=== PATIENT | female | born 1950 | race Caucasian/White ===

== ENCOUNTER 2019-12-14 17:33 | Emergency (ER) | payer MEDICARE, BC ==
[~2019-12-14] VITALS: Ht 154.9 cm; Wt 58.1 kg
[2019-12-14] MEDS ORDERED: LOPRESSOR50 MG PO (17:52)
[2019-12-14] MEDS ORDERED: LIPITOR10 MG PO (17:52)
[2019-12-14] MEDS ORDERED: OMEPRAZOLE20 M2 PO (17:52)
[2019-12-14] MEDS ORDERED: VESICARE10 M1 PO (17:53)
[2019-12-14] MEDS ORDERED: ZESTRIL10 MG PO (17:53)
[2019-12-14 20:26] LABS: INFLUENZA A ANTIGEN Negative (Negative); INFLUENZA B ANTIGEN Negative (Negative)
[2019-12-14] MEDS ORDERED: HYDROCODON-ACE1 EAC8 PO (21:47)
[2019-12-14 22:10] VITALS: BP 137/73
== END 2019-12-14 22:10 | disposition home or self-care (01) ==
LOC: M.ERS 17:33
PROVIDERS: Emergency Medicine
DX: S42.252A Displaced fracture of greater tuberosity of left humerus, initial encounter for closed fracture (principal); S22.42XA Multiple fractures of ribs, left side, initial encounter for closed fracture; I10 Essential (primary) hypertension; E78.00 Pure hypercholesterolemia, unspecified; Z88.2 Allergy status to sulfonamides; W10.9XXA Fall (on) (from) unspecified stairs and steps, initial encounter; Y92.89 Other specified places as the place of occurrence of the external cause; Y93.89 Activity, other specified; Y99.8 Other external cause status

== ENCOUNTER → 2020-07-27 | Outpatient (CLI) | payer MEDICARE, BC ==
[~2020-07-27] MED LIST: AMLODIPINE BESY10 MG PO; ATORVASTATIN CA80 MG PO; BUDESONIDE0.5 MG/2 M INH; CALCIUM 600 +1 EAC8 PO; COLACE100 MG PO; CRANBERRY500 M3 PO; FIORINAL/CODEIN30 M1 PO; FISH OIL 1,0001 EAC9 PO; HYDROCODON-ACE1 EAC8 PO; LIPITOR10 MG PO; LOPRESSOR50 MG PO; METOPROLOL SUCC50 MG PO; NITROGLYCERIN0.4 MG SUBLING; OMEPRAZOLE20 M2 PO; ST. JOSEPH ASPI81 M1 PO; VESICARE10 M1 PO; VITAMIN E1000 UNIT PO; ZESTRIL10 MG PO
[2020-07-27 09:25] LABS: ABSOLUTE EOSINOPHILS 0.1 thou/uL (0.0-0.7); ABSOLUTE LYMPHOCYTES 1.9 thou/uL (0.8-5.3); ABSOLUTE MONOCYTES 0.5 thou/uL (0.0-1.2); ABSOLUTE NEUTROPHILS 3.3 thou/uL (1.6-8.1); BASOPHILS 0.5 %; EOSINOPHILS 1.5 %; HEMATOCRIT 40.5 % (37.0-47.0); HEMOGLOBIN 13.6 gm/dL (12.0-15.0); LYMPHOCYTES 32.7 %; MCH 32.3 pg (26.0-34.0); MCHC 33.7 g/dL (28.0-37.0); MCV 95.9 fL (80.0-100.0); MPV 6.5 fl. (7.2-11.1); NUCLEATED RBCS 0 /100WBC; PLATELET COUNT* 301 thou/uL (150-400); POLYS 56.3 %; RBC 4.22 mil/uL (4.20-5.00); RDW-CV 12.9 % (10.5-14.5); WBC 5.9 thou/uL (4.0-11.0)
[2020-07-27 09:33] LABS: INR 0.9; PROTIME 9.8 Seconds (9.20-11.50)
[2020-07-27 09:44] LABS: ALBUMIN 3.5 g/dL (3.4-5.0); CALCIUM 9.4 mg/dL (8.5-10.1); CREATININE 0.8 mg/dL (0.6-1.3); POTASSIUM 4.7 mmol/L (3.5-5.1); TOTAL BILIRUBIN 0.4 mg/dL (<0.1-1.0); TOTAL PROTEIN 7.1 g/dL (6.4-8.2)
[2020-07-27 10:23] LABS: ESR (SEDRATE) 15 mm/hr (0-30)
== END ==
LOC: M.LAB 08:08
PROVIDERS: ATTEND Orthopaedic Surgery
DX: Z51.81 Encounter for therapeutic drug level monitoring (principal); Z01.812 Encounter for preprocedural laboratory examination; Z20.828 Contact with and (suspected) exposure to other viral communicable diseases; M19.012 Primary osteoarthritis, left shoulder; Z79.01 Long term (current) use of anticoagulants

== ENCOUNTER → 2020-08-20 | Outpatient (CLI) | payer MEDICARE, BC ==
[~2020-08-20] MED LIST changes: +ELIQUIS5 MG PO; +OXYCODONE HCL 55 MG PO
== END ==
LOC: M.LAB 12:00
PROVIDERS: ATTEND Orthopaedic Surgery
DX: Z01.812 Encounter for preprocedural laboratory examination (principal); Z20.828 Contact with and (suspected) exposure to other viral communicable diseases

== ENCOUNTER 2020-08-24 06:02 | Observation (INO) | payer MEDICARE, BC ==
[~2020-08-24] VITALS: Ht 157.5 cm; Wt 56.7 kg
[~2020-08-24 06:02] MED LIST changes: -ELIQUIS5 MG PO; -OXYCODONE HCL 55 MG PO
[2020-08-24 07:00] VITALS: BP 123/70
[2020-08-24 11:15] VITALS: BP 118/56
[2020-08-24 16:00] VITALS: BP 98/56
[2020-08-24 20:53] VITALS: BP 117/57
[2020-08-24 23:51] VITALS: BP 95/52
[2020-08-25 03:27] VITALS: BP 125/62
[2020-08-25 04:03] LABS: HEMOGLOBIN 10.5 gm/dL (12.0-15.0)
[2020-08-25 07:15] VITALS: BP 162/54
[2020-08-25 08:55] VITALS: BP 162/54
[2020-08-25 08:58] VITALS: BP 162/54
[2020-08-25] MEDS ORDERED: ELIQUIS5 MG PO (09:34)
[2020-08-25] MEDS ORDERED: OXYCODONE HCL 55 MG PO (09:34)
[2020-08-25 09:39] VITALS: BP 162/54
--- NOTE | 2020-08-25 22:08 | OP ---
[address] [address] OPERATIVE REPORT Name: KINJAL RAMIREZ MARCH Room: [address] Chey Nguyen#: [id number] Admission: 08/24/20 Attend Phys: Eric Sharma Discharge: 08/25/20 Date of : 48 Report #: [id number] THIS REPORT FOR: //name// cc: Stephanie Herrera MD, Jayne Lora MD ~ CC: Russel Ramirez DATE OF SERVICE: 08/24/2020 PREOPERATIVE DIAGNOSIS: Left shoulder rotator cuff arthropathy. POSTOPERATIVE DIAGNOSIS: Left shoulder rotator cuff arthropathy. PROCEDURE: Left reverse total shoulder arthroplasty. SURGEON: Russel Sanchez DO FIRST ASSISTANTS: 1. Morro Isidro DO 2. Lenny Carey DO 3. Nelsy Ochoa DO ANESTHESIA: General and interscalene block. ANTIBIOTICS: Ancef IV. FLUIDS: 1100 mL lactated Ringer's. ESTIMATED BLOOD LOSS: 100 mL. COMPLICATIONS: None. SPECIMENS: None. DRAINS: None. CONDITION OF PATIENT: Stable to PACU. IMPLANTS: Tornier reverse total shoulder system with threaded post baseplate 25 mm, centered glenosphere 36 mm for a 25 baseplate, 2 appropriately sized locking screws, 3 stem, +6 mm reversed insert poly. INDICATIONS FOR PROCEDURE: The patient presented to [facility] for left reverse total shoulder arthroplasty, [place] [address] OPERATIVE REPORT Name: KINJAL RAMIREZ MARCH Room: [address] Chey Nguyen#: [id number] Admission: 08/24/20 Attend Phys: Eric Sharma Discharge: 08/25/20 Date of : 48 Report #: [id number] have been seeing her ever since she had a proximal humerus fracture. She had underlying arthritis and history of rotator cuff tear and decreased motion with rotator cuff arthropathy type appearance. Her fracture went on to heal. She had pain, tried an injection, tried activity modification, oral medications, continued to have pain. She wished to have surgery. We discussed reverse total shoulder at multiple appointments, on the phone prior to surgery as well as today. Risks and complications were discussed. She acknowledged, accepted and gave consent to proceed. DESCRIPTION OF PROCEDURE: I marked the left upper extremity in the presence of operative team members. Everyone agreed correct. She was taken to the operative suite, placed on the table supine and given general anesthetic. She was placed in the beach chair position, well-padded and secured. The left upper extremity was sterilely prepped and draped in a standard fashion. Timeout was performed indicating correct patient, procedure, site, antibiotics and that implants were present and sterile. All team members agreed. Deltopectoral incision, scalpel through the skin, visualized the true deltopectoral interval, cephalic vein protected and taken with the deltoid. Once we were in that interval, we then got down to the clavipectoral fascia, released this so that we could carefully retract the conjoint tendon trying not to place too much tension. We then visualized the groove where the biceps normally would be; however, there was no biceps within that groove; she had already ruptured this. The lesser tuberosity was identified as well as subscapularis. At that point in time, we then began feeling this soft and tagging suture for later repair. Externally rotated the humeral head out within the field. Once we had full and appropriate visualization, we only released what was necessary, being careful to protect the neurovascular structures and deltoid tissue. We used a guide. With the guide in place, we then used this oscillating saw to make our cut. We then began prepping the humerus. A long stem 3 was appropriate. We left the broach in place to give protection for the humerus while working on glenoid. Retractors were placed appropriately. To gain appropriate exposure to the glenoid, we removed soft tissue that would be in the way, including labrum. We performed a cruciate rafat to get access to our glenoid. We placed the guide for guidewire. The guidewire looked to be in appropriate position. It was matching up well with our cruciate being just slightly inferior, which would be ideal. We then began reaming and then hand reaming to set our off 25-mm baseplate. We then drilled and punched for our threaded peg and the 25-mm baseplate was inserted, good purchase. We then drilled, measured and placed 2 appropriately sized locking screws. Our centered glenosphere was then inserted with the screw tightened, confirmed to be well engaged. We then turned our attention back to the humerus. We checked our stem. It was fitting appropriately. Removed the stem. Once we had removed our stem, we were checking around the humerus and noted that there was just a very small linear crack. It did not appear to be full thickness just on the medial edge. No instability of the humerus. We carefully dissected down and the crack did not continue more than 1 cm past our inferior medial border. We passed around two #5 FiberWires, tied those together [address] [place] [address] OPERATIVE REPORT Name: KINJAL RAMIREZ MARCH Room: [address] Chey Nguyen#: [id number] Admission: 08/24/20 Attend Phys: Eric Sharma Discharge: 08/25/20 Date of : 48 Report #: [id number] to act a cerclage. The final #3 long stem was then inserted uneventfully with no progression of that crack or splitting. It sat in an appropriate position. We then began trialing. We used our reverse tray, 0 mm, more centered with a +6 thickness insert for 36 mm. This trial was excellent. She had good range of motion, functional, very stable, appropriate tension along the conjoint and deltoid. Those final implants were thrown, assembled uneventfully with all final components in place. We then reduced the shoulder. With all final components in place, we took the shoulder through motion; it was excellent, very stable and appropriate tension throughout the conjoint and deltoid. We irrigated thoroughly with normal saline, closed the deltopectoral interval with 0 Vicryl, subcutaneous with 2-0 Monocryl, skin with 3-0 Stratafix and Dermabond glue. Debriefing performed confirming procedure, blood loss and that all counts were correct and final. All team members agreed. Sterile silver impregnated dressing applied. She was extubated and taken to PACU in stable. POSTOPERATIVE COURSE AND EVALUATION: I spoke with her and addressed questions he had to stated satisfaction. He was very thankful for my time and efforts. She was resting in PACU with stable vital signs, pain controlled, well perfused, left upper extremity with palpable pulses distally. Block and effects, neuro exam not possible. PACU films showed stable implants in good position and alignment with no obvious fracture or dislocation. She will be nonweightbearing immobilizer for range of motion about the elbow and distal. We will hold off on motion near her shoulder at this time. She is admitted to the medical service. DVT prophylaxis will be both pharmacological and mechanical. We will anticipate discharge tomorrow and stable. Call if you have any questions or concerns. COVID protocol followed at all times. <ELECTRONICALLY SIGNED> By: Russel Sanchez DO 08/25/20 [id number] Sanchez DO /nt
--- NOTE | 2020-08-25 22:08 | H ---
[place] [address] HISTORY AND PHYSICAL Name: KINJAL RAMIREZ MARCH Room: [address] Chey Nguyen#: [id number] Admission: 08/24/20 Attend Phys: Eric Sharma Discharge: 08/25/20 Date of : 48 Report #: [id number] THIS REPORT FOR: //name// cc: Stephanie Herrera MD, Jayne Lora MD ~ CC: Russel Ramirez DATE OF SERVICE: 08/24/2020 PREOPERATIVE HISTORY AND PHYSICAL CHIEF COMPLAINT: Left shoulder pain. HISTORY OF PRESENT ILLNESS: The patient is a 70-year-old female who presents to [facility] for left shoulder pain and reverse total shoulder arthroplasty. Her is present. I had many visits with her prior. At the very first time, we saw her for her proximal humerus fracture. She had a known history of underlying arthritis and pain in her shoulder prior to that, she was wishing for surgery. We nonoperatively managed her proximal humerus fracture successfully. At multiple visits, we had gone over what the surgery would entail as well as risks and complications. She does have an overall high riding humerus. She said she always had decreased motion and was told years ago she had a rotator cuff tear, but did not have that fixed. She has pain that affects her daily living. There are many days that it is 10/10. She is tired of dealing with the pain and wants to have the surgery. At last visit, we had discussed the risks and complications in detail as well as on the phone a couple of times between now and surgery. I also went over those with her again today and she is ready for procedure. She is feeling well. Denies fevers, chills, chest pain, shortness of breath, cough, numbness, tingling or loss of sensation. ALLERGIES: SULFA. MEDICATIONS: Amlodipine, atorvastatin, aspirin 81 mg, budesonide, calcium carbonate, lisinopril, multivitamin, omeprazole. 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 PAST SURGICAL HISTORY: Bunionectomy, carpal tunnel release, cataract surgery, cardiac catheterization, gastric bypass, hysterectomy, left lower extremity fracture surgery, bilateral breast reduction, sinus surgery, tubal ligation, [place] [address] HISTORY AND PHYSICAL Name: KINJAL RAMIREZ MARCH Room: [address] Chey Nguyen#: [id number] Admission: 08/24/20 Attend Phys: Eric Sharma Discharge: 08/25/20 Date of : 48 Report #: [id number] SOCIAL HISTORY: She currently denies any tobacco or illicit drug use. She is a former smoker. Alcohol use, 1-2 drinks per week. FAMILY HISTORY: Cancer, hypertension, diabetes, stroke. REVIEW OF SYSTEMS: A 14-point completed and were negative today except for musculoskeletal. See HPI shoulder with the patient with pain. PHYSICAL EXAMINATION: VITAL SIGNS: Stable and she is afebrile. GENERAL: She is alert and oriented. HEENT: Normocephalic. Eyes: Extraocular muscles are intact. Ears: Normal hearing. Nose: Nares patent. RESPIRATORY: Lungs have nonlabored breathing. CARDIOVASCULAR: Well perfused left upper extremity. ABDOMEN: Soft. PSYCHIATRIC: Appears to be normal mood and affect. NEUROLOGIC: Intact in the left upper extremity. I do not appreciate radicular signs or symptoms. MUSCULOSKELETAL: The left shoulder has significantly decreased range of motion with pain, pseudoparalysis type situation with decreased rotator cuff function. Compartments are soft and compressible. Skin in good condition and intact with no obvious lesions or signs of infection. RADIOGRAPHIC DATA: Imaging reviewed. End-stage degenerative changes of the left shoulder with well healed proximal humerus fracture. No new or obvious other findings. IMPRESSION: Left shoulder degenerative joint disease, rotator cuff arthropathy pathology. PLAN: I again went over with her and today the plan of surgery with its reasoning. I talked about the difference between total shoulder and reverse total shoulder. They were in agreement with the reverse total shoulder as planned. Risks and complications that had been discussed throughout multiple visits in the past on the phone since then and also today that are detailed below include but are not limited to infection that could require surgical treatment with potential long-term antibiotics and their sequela, wound healing complications, neurovascular injury. I explained some of the more common with the surgery could be axillary, musculocutaneous, other risks possible are bleeding, transfusion risks, hematoma, seroma, continued and/or worsening of pain, decreased function compared to presurgical function. I explained could be loss of significant use of that extremity that could impair her ability to live independently, do things independently including things she enjoys. She states does not work or have any plans of return to work, fracture structures [address] [address] HISTORY AND PHYSICAL Name: KINJAL RAMIREZ MARCH Room: [address] Chey Nguyen#: [id number] Admission: 08/24/20 Attend Phys: Eric Sharma Discharge: 08/25/20 Date of : 48 Report #: [id number] surrounding the surgery, explained the most likely would be of the humerus, scapula, acromion or coracoid, instability of the prosthesis including dislocation, scapular notching, failure of implant and/or bone, loosening, muscle, tendon, ligamentous injury, stiffness, loss of strength, dexterity, coordination, complex regional pain syndrome, compartment syndrome, need for further intervention and/or surgery for any reason. I did explain I may even have to refer her to another center and/or surgeon, organ dysfunction/failure DVT, PE, VA, stroke, , anesthetic related complications to be discussed by the anesthesia team prior to surgery. There are also possible unforeseen/not specifically mentioned complications. After addressing their questions to stated satisfaction, they said they understood what was presented. They are thankful for my time and detailed explanations not only on prior visits over the phone, but today as well. She had even recently texted me going over certain things regarding the surgery prior and said that she was sorry to bother. I again encouraged them that cell phone number I have given to them, so that they have access for me at any time day or night. I encouraged them to call or text. They are happy with care, ready for surgery. They acknowledged and accepted risks and complications and gave consent to proceed. COVID protocol being followed. <ELECTRONICALLY SIGNED> By: Russel Sanchez DO 08/25/20 [id number] Sanchez, /nt
== END 2020-08-25 10:44 | disposition home or self-care (01) ==
LOC: EDSTATUS 06:02 → M.TBA 06:04 → M.PRE 09:43 → EDSTATUS 10:53 → M.SUR 10:59 → M.ORTHSURG 11:14 → M.SUR 16:10 → M.ORTHSURG 08-25 10:44
PROVIDERS: Orthopaedic Surgery; ADMIT Internal Medicine; ATTEND Internal Medicine
DX: M19.012 Primary osteoarthritis, left shoulder (principal); I10 Essential (primary) hypertension; E78.00 Pure hypercholesterolemia, unspecified; Z79.82 Long term (current) use of aspirin; Z87.891 Personal history of nicotine dependence

== ENCOUNTER 2021-02-16 12:18 | Emergency (ER) | payer MEDICARE, BC ==
[~2021-02-16] VITALS: Ht 157.5 cm; Wt 55.3 kg
[~2021-02-16 12:18] MED LIST changes: +ELIQUIS5 MG PO; +OXYCODONE HCL 55 MG PO
[2021-02-16 13:41] VITALS: BP 127/73
== END 2021-02-16 13:42 | disposition home or self-care (01) ==
LOC: M.ERS 12:18
DX: S50.02XA Contusion of left elbow, initial encounter (principal); S09.90XA Unspecified injury of head, initial encounter; G43.909 Migraine, unspecified, not intractable, without status migrainosus; K21.9 Gastro-esophageal reflux disease without esophagitis; I10 Essential (primary) hypertension; E78.00 Pure hypercholesterolemia, unspecified; Z95.5 Presence of coronary angioplasty implant and graft; Z90.711 Acquired absence of uterus with remaining cervical stump; Z90.89 Acquired absence of other organs; Z98.84 Bariatric surgery status; Z98.51 Tubal ligation status; Z79.899 Other long term (current) drug therapy; Z79.82 Long term (current) use of aspirin; Z88.2 Allergy status to sulfonamides; W01.198A Fall on same level from slipping, tripping and stumbling with subsequent striking against other object, initial encounter; Y93.89 Activity, other specified; Y92.89 Other specified places as the place of occurrence of the external cause; Y99.8 Other external cause status